=== PATIENT | male | born 1990 | race Two or more races ===

== ENCOUNTER 2024-09-30 12:25 | Emergency (ER) | payer MEDICARE, MEDICAID ==
[~2024-09-30] VITALS: Ht 167.6 cm; Wt 68.0 kg
[2024-09-30 12:28] VITALS: O2SAT 98
[2024-09-30 12:33] VITALS: BP 128/75; PULSE 87; RESP 16; TEMP 36.7; O2SAT 99
[2024-09-30] MEDS ORDERED: PERM60CR4 TP (13:42)
[2024-09-30] MEDS ORDERED: DIPH28.33 TP (13:42)
[2024-09-30] MEDS ORDERED: HYDR45CR12 TP (13:42)
== END 2024-09-30 14:40 | disposition home or self-care (01) ==
LOC: ER 12:25
DX: L29.9 Pruritus, unspecified (principal); Z79.899 Other long term (current) drug therapy; W57.XXXA Bitten or stung by nonvenomous insect and other nonvenomous arthropods, initial encounter; Y93.89 Activity, other specified; Y92.89 Other specified places as the place of occurrence of the external cause; Y99.8 Other external cause status
CPT/HCPCS: 99282